=== PATIENT | female | born 1965 | race Caucasian/White ===

== ENCOUNTER 2018-07-24 14:10 | Emergency (ER) | payer OTHER ==
[~2018-07-24] VITALS: Ht 165.1 cm; Wt 65.0 kg
[2018-07-24] MEDS ORDERED: QUET25TA PO (14:16)
[2018-07-24] MEDS ORDERED: HYDR1LIQ PO (14:16)
[2018-07-24] MEDS ORDERED: GABA-529 PO (14:16)
[2018-07-24] MEDS ORDERED: PARO10TA87 PO (14:16)
[2018-07-24] MEDS ORDERED: TRAMADOL 50MG TABLET PO ONE (18:30)
[2018-07-24] MEDS ORDERED: ONDANSETRON 4MG ODT PO NR (18:30)
[2018-07-24 19:14] VITALS: BP 124/83
== END 2018-07-24 19:13 | disposition home or self-care (01) ==
LOC: ER 14:10
DX: S42.302A Unspecified fracture of shaft of humerus, left arm, initial encounter for closed fracture (principal); F41.9 Anxiety disorder, unspecified; Z79.899 Other long term (current) drug therapy; W19.XXXA Unspecified fall, initial encounter; Y93.89 Activity, other specified; Y92.89 Other specified places as the place of occurrence of the external cause; Y99.8 Other external cause status
CPT/HCPCS: 73030; 99283; Q0162